=== PATIENT | female | born 1995 | race African-American/Black ===

== ENCOUNTER 2016-12-26 02:24 | Emergency (ER) | payer MEDICAID ==
[~2016-12-26] VITALS: Ht 157.5 cm; Wt 73.3 kg
[~2016-12-26 02:24] MED LIST: ONDA4TAB35 PO
[2016-12-26 02:29] VITALS: Ht 157.5 cm; Wt 73.3 kg
--- NOTE | 2016-12-26 05:58 | ERD ---
ER Documentation Chief Complaint Date/Time DATE: 12/26/16 TIME: 05:55 Chief Complaint Headache x 1 week HPI 21-year-old female complaining of left ear "plugged" 2 weeks. For the last week, she started feeling pain in the left ear with ringing noises, and headache. Denies fever or chills. Denies cough or nasal congestion. Denies trauma to the ear. ROS All systems reviewed and are negative except as per history of present illness. Medications Home Meds Active Scripts Ondansetron Hcl* (Zofran* ODT) 4 mg -ODT Tab.disper, 4 MG PO Q8 Y for NAUSEA AND /OR VOMITING, #30 TAB Prov:ARLENE CR HIV PREVENTION SPECIALIST 04/15/15 Allergies Allergies: Coded Allergies: Penicillins (Verified Allergy, Intermediate, RASH, 05/30/14) Uncoded Allergies: PCN (Allergy, Unknown, UNKNOWN, 05/30/14) PMhx/Soc Medical and Surgical Hx: pt denies Medical Hx, pt denies Surgical Hx History of Surgery: No Anesthesia Reaction: No Hx Neurological Disorder: No Hx Respiratory Disorders: No Hx Cardiac Disorders: No Hx Psychiatric Problems: No Hx Miscellaneous Medical Probl: No Hx Alcohol Use: No Hx Substance Use: No Hx Tobacco Use: No Smoking Status: Never smoker Physical Exam Vitals Vital Signs Date Time Temp Pulse Resp B/P Pulse Ox O2 Delivery O2 Flow Rate FiO2 12/26/16 02:29 79 16 117/75 98 Physical Exam General impression: Well-developed, well-nourished. Alert, oriented, in no acute distress Head: Normocephalic, atraumatic. Eyes: PERRL, EOM normal. Conjunctiva not injected. ENT: Right external canal clear, TM pearly glass. Cerumen in the left ear canal, unable to visualize TM. Nasal mucosa, oral mucosa and oropharynx are normal. Neck: Supple, nontender. No lymphadenopathy. No nuchal rigidity. Respiration: Normal respiratory effort. Lungs clear to auscultate bilaterally. No wheezes, rales or rhonchi. Cardiovascular: Regular rate and rhythm. No murmurs or extra heart sounds. Neuro: Mental status normal, speech normal. INSIDE [employer] grossly intact. Skin: Normal turgor. No rash or lesions. Psych: Normal mood and affect. Procedures/MDM Procedure note: Removal of impacted cerumen Large amount of cerumen was removed with both irrigation and curette by me. There is still significant amount of cerumen remaining, able to visualize TM through the cerumen. Patient reports improvement hearing after the procedure. I doubt otitis media or otitis externa. I doubt mastoiditis. Patient appears well, stable for discharge and outpatient management. Medical decision making shared with patient and family. Education provided to patient and family. Patient and family expressed understanding of the plan. Medications on discharge: None. Follow-up: Primary care provider in 2-3 days or return to ED if worse. Departure Diagnosis: Primary Impression: Impacted cerumen of left ear Condition: Good Patient Instructions: Cerumen Impaction, Home Care Referrals: [facility] YOU HAVE RECEIVED A MEDICAL SCREENING EXAM AND THE RESULTS INDICATE THAT YOU DO NOT HAVE A CONDITION THAT REQUIRES URGENT TREATMENT IN THE EMERGENCY DEPARTMENT. FURTHER EVALUATION AND TREATMENT OF YOUR CONDITION CAN WAIT UNTIL YOU ARE SEEN IN YOUR DOCTORS OFFICE WITHIN THE NEXT 1-2 DAYS. IT IS YOUR RESPONSIBILITY TO MAKE AN APPOINTMENT FOR FOLOW-UP CARE. IF YOU HAVE A PRIMARY DOCTOR --you should call your primary doctor and schedule an appointment IF YOU DO NOT HAVE A PRIMARY DOCTOR YOU CAN CALL OUR PHYSICIAN REFERRAL HOTLINE AT IF YOU CAN NOT AFFORD TO SEE A PHYSICIAN YOU CAN CHOSE FROM THE FOLLOWING [facility] [address] [facility]. [facility] [address] [facility] [address] [facility] [address] [facility]. [facility] [address] [facility]. [facility]. [address] Additional Instructions: Call your primary care doctor TOMORROW for an appointment during the next 2-3 days.See the doctor sooner or return here if your condition worsens before your appointment time. JER CHAMORRO NP Dec 26, 2016 05:58
[2016-12-26 06:17] VITALS: BP 124/82; PULSE 71; RESP 16
== END 2016-12-26 06:16 | disposition home or self-care (01) ==
LOC: FTE 02:24
DX: H61.22 Impacted cerumen, left ear (principal)
CPT/HCPCS: 69210; Z7502

== ENCOUNTER 2018-02-04 12:28 | Emergency (ER) | END 2018-02-04 17:04 | disposition home or self-care (01) ==

== ENCOUNTER 2018-02-18 00:32 | Emergency (ER) | END 2018-02-18 03:57 | disposition home or self-care (01) ==

== ENCOUNTER 2018-05-03 10:11 | Emergency (ER) | END 2018-05-03 11:30 | disposition home or self-care (01) ==

== ENCOUNTER 2018-11-06 10:16 | Emergency (ER) | payer SELFPAY ==
[~2018-11-06] VITALS: Ht 167.6 cm; Wt 80.8 kg
[~2018-11-06 10:16] MED LIST changes: +CIPR-193 PO; +DIPH1TAB PO; +MAG-19 PO; +ONDA4TAB14 PO; +RANI150T35 PO
[2018-11-06 10:19] VITALS: BP 130/72; RESP 20; Ht 167.6 cm; Wt 80.8 kg
[2018-11-06] MEDS ORDERED: ONDANSETRON (ODT) 4 MG TAB ODT STA (10:53)
[2018-11-06] MEDS ORDERED: IBUPROFEN 600 MG TAB PO STA (10:53)
[2018-11-06] MEDS ORDERED: ACETAMINOPHEN 500 MG TAB PO STA (10:53)
[2018-11-06] MEDS ORDERED: SOD CHLORIDE 0.9% 1,000 ML IV ONE (11:00)
[2018-11-06] MEDS ORDERED: ACET500C5 PO (12:16)
[2018-11-06] MEDS ORDERED: IBUP-1542 PO (12:16)
[2018-11-06] MEDS ORDERED: GUAI5SYR2 PO (12:18)
[2018-11-06] MEDS ORDERED: OSEL75CA23 PO (12:18)
[2018-11-06 12:27] VITALS: PULSE 89
--- NOTE | 2018-11-06 12:27 | ERD ---
ER Documentation Chief Complaint Chief Complaint Cough, colds and flulike symptoms x 2 days HPI Patient is a 23-year-old female with no past medical history presents to the ER for concerns of cough, fever, sore throat, vomiting times 2 days. Patient states Tuesday night she had 2-3 glasses of alcohol. She states she woke up Tuesday morning feeling "hung over". Since that time she has not been feeling well. She states yesterday night she developed body aches, chills, cough and sore throat. Patient states she last vomited yesterday. Patient continues to feel nauseous. Patient has no abdominal pain or chest pain. Patient states that she does feel short of breath. Patient has no diarrhea. Patient has no headache, neck pain or neck stiffness. Patient did not get the flu vaccine. Patient did not know she had a fever prior to arrival. Patient has not taken any medications for her symptoms. ROS All systems reviewed and are negative except as per history of present illness. Medications Home Meds Active Scripts Guaifenesin-Dextromethorphan* (Robitussin* DM) 100MG/10MG/5ML Syrup, 5 ML PO Q4H PRN for COUGH, #4 OZ Prov:ELVIRA TATE PA-C 11/06/18 Oseltamivir Phosphate* (Tamiflu*) 75 Mg Capsule, 75 MG PO BID for 5 Days, CAP Prov:ELVIRA TATE PA-C 11/06/18 Acetaminophen* (Tylophen*) 500 Mg Capsule, 1 CAP PO Q6H PRN for PAIN AND OR ELEVATED TEMP, #20 CAP Prov:ELVIRA TATE PA-C 11/06/18 Ibuprofen* (Motrin*) 600 Mg Tab, 600 MG PO Q6, #30 TAB Prov:ELVIRA TATE PA-C 11/06/18 Ondansetron (Ondansetron Odt) 4 Mg Tab.rapdis, 4 MG PO Q6H PRN for NAUSEA AND/OR VOMITING, #10 TAB Prov:SHRUTHI,LORENA 02/18/18 Ranitidine Hcl* (Zantac*) 150 Mg Tablet, 150 MG PO BID PRN for EPIGASTRIC PAIN for 15 Days, #30 TAB Prov:SHRUTHI,LORENA 02/18/18 Magaldrate/Simethicone* (Mylanta*) 355 Ml Susp, 30 ML PO QID PRN for GASTROINTESTINAL UPSET, #1 BOTTLE Prov:SHRUTHILORENA 02/18/18 Ranitidine Hcl* (Zantac*) 150 Mg Tablet, 150 MG PO BID PRN for EPIGASTRIC PAIN for 7 Days, #14 TAB Prov:VICTOR HUGO PALACIOS MD 02/04/18 Diphenoxylate HCl/Atropine (Lomotil 2.5-0.025 mg Tablet) 1 Each Tablet, 1 TAB PO QID PRN for DIARRHEA, #10 TAB Prov:VICTOR HUGO PALACIOS MD 02/04/18 Ciprofloxacin Hcl* (Ciprofloxacin Hcl*) 250 Mg Tablet, 250 MG PO BID for 3 Days, #6 TAB Prov:VICTOR HUGO PALACIOS MD 02/04/18 Ondansetron Hcl* (Zofran* ODT) 4 mg -ODT Tab.disper, 4 MG PO Q8 PRN for NAUSEA AND/OR VOMITING, #30 TAB Prov:ARLENE CR NP 04/15/15 Allergies Allergies: Coded Allergies: Penicillins (Verified Allergy, Intermediate, RASH, 02/04/18) PMhx/Soc History of Surgery: No Anesthesia Reaction: No Hx Neurological Disorder: No Hx Respiratory Disorders: No Hx Cardiac Disorders: No Hx Psychiatric Problems: No Hx Miscellaneous Medical Probl: No Hx Alcohol Use: No Hx Substance Use: No Hx Tobacco Use: No Smoking Status: Never smoker FmHx Family History: No diabetes Physical Exam Vitals Vital Signs Date Temp Pulse Resp B/P (MAP) Pulse Ox O2 O2 Flow FiO2 Time Delivery Rate 11/06/18 99.7 89 12:27 11/06/18 102.8 11:07 11/06/18 102.8 11:07 11/06/18 102.8 120 20 130/72 98 10:19 (91) Physical Exam GENERAL: Well-developed, well-nourished female. Appears in no acute distress. Speaking in full sentences. Nontoxic in appearance. HEAD: Normocephalic, atraumatic. No deformities or ecchymosis. EYE: Pupils equal, round, and reactive to light. EOMs intact. No conjunctival erythema. No eye discharge. ENT: External ear without any masses or tenderness. Auditory canals clear bilaterally. TM visualized bilaterally, non-erythematous, non-bulging. Nasal mucosa pink with no discharge. Oropharynx is pink without any tonsillar erythema or exudates. No uvula deviation. No kissing tonsils. NECK: Supple. No meningismus. Normal ROM of the neck. LUNG: Clear to auscultation bilaterally. No rhonchi, wheezing, rales or coarse breath sounds. HEART: Tachycardic. No murmurs, rubs or gallops. EXTREMITES: Equal pulses bilaterally. No peripheral clubbing, cyanosis or edema. No unilateral leg swelling. NEUROLOGIC: Alert and oriented to person, place and time. Moving all four extremities. 5/5 strength in all extremities. Normal speech. Steady gait. SKIN: Normal color. Warm and dry. No rashes or lesions. Results 24 hrs Laboratory Tests Test 11/06/18 11:04 11/06/18 11:06 Bedside Urine pH (LAB) 6.5 Bedside Urine Protein (LAB) 1+ Bedside Urine Glucose (UA) Negative Bedside Urine Ketones (LAB) 2+ Bedside Urine Blood 2+ Bedside Urine Nitrite (LAB) Negative Bedside Urine Leukocyte Esterase (L Negative POC Beta HCG, Qualitative NEGATIVE Current Medications Medications Dose Sig/Amor Start Time Status Last (Trade) Ordered Route PRN Stop Time Admin Dose Reason Admin 1,000 mg ONCE STAT 11/06/18 DC 11/06/18 Acetaminophen PO 10:53 11/06/18 11:07 (Tylenol 10:55 Tab) Ibuprofen 600 mg ONCE STAT 11/06/18 DC 11/06/18 (Motrin) PO 10:53 11/06/18 11:07 10:55 Ondansetron 4 mg ONCE STAT 11/06/18 DC 11/06/18 HCl (Zofran ODT 10:53 11/06/18 11:07 Odt) 10:55 Sodium 1,000 ml @ Q1H ONCE 11/06/18 DC 11/06/18 Chloride 1,000 mls/hr IV 11:00 11/06/18 11:07 11:59 Procedures/MDM ED COURSE: The patient was stable throughout ED course. I kept the patient and/or family informed of laboratory and diagnostic imaging results throughout the ED course. DIAGNOSTIC IMAGING: Read by radiologist. Patient: MIYA RANGEL : 1995 Age: 23 Sex: F MR #: [id number] DOS: 11/06/18 1053 Ordering MD: ELVIRA TATE PA-C Location: [facility] Room/Bed: PROCEDURE: XR Chest. CLINICAL INDICATION: Cough, fever TECHNIQUE: Single frontal view of the chest was obtained COMPARISON: None FINDINGS: The heart and mediastinum are within normal limits. The lungs are clear. There is no pleural effusion or pneumothorax. RPTAT: AA IMPRESSION: No acute disease. .Mikel Lobato MD, MD Date Time Electronically viewed and signed by .Mikel Lobato MD, MD on 11/06/2018 11:31 .S/ CC: ELVIRA TATE PA-C [id number] PROCEDURES: None. MEDICATIONS GIVEN: Ibuprofen, Tylenol, IV fluids, Zofran Patient tolerated medication well with no adverse reactions MEDICAL DECISION MAKING: This is a 23-year-old female with no past medical history presents ER for concerns of cough no fever, sore throat, denies body aches and vomiting times 2 days. Patient states she had vomiting after recently drinking alcohol. Last episode of vomiting was yesterday. Vital signs were reviewed. Vital signs were reviewed. Patient was febrile initial presentation with a temperature of 102.8. Patient was tachycardic at 120. IV line was established. Patient was given IV fluids. Urine was obtained and was negative for . UA showed 2+ blood, 2+ ketones however no nitrates or leukocyte esterase. Influenza swab was positive for influenza A. Given that patient presents with symptoms within 48 hours of onset, patient will be treated with a course of Tamiflu. Chest x-ray was unremarkable. Upon reexamination, patient reports significant improvement in symptoms. Patient stated her body aches were improved. Patient no longer had any shortness of breath. Patient was tolerating p.o. fluids without any difficulty. At this time, the patient's presentation is most consistent with influenza A. Low suspicion for UTI, pyelonephritis, pneumonia, meningitis, sinusitis, otitis externa, acute otitis media, strep pharyngitis, epiglottitis or peritonsillar abscess. Low suspicion for sepsis. Patient's vital signs were within normal limits prior to discharge. Patient was nontoxic, non-opening prior to discharge. PRESCRIPTIONS: Tylenol, ibuprofen, Tamiflu, Robitussin-DM cough syrup DISCHARGE: At this time, patient is stable for discharge and outpatient management. Supportive therapies such as OTC throat lozenges, salt water gurgles, popsicles and jello discussed. I have instructed the patient to follow-up with his/her primary care physician in 1-2 days. I have instructed the patient to promptly return to the ER for any new or worsening symptoms including increased pain, swelling, fever, nausea, vomiting, weakness or difficulty breathing. The patient and/or family expressed understanding of and agreement with this plan. All questions were answered. Home care instructions were provided. Disclaimer: Inadvertent spelling and grammatical errors are likely due to EHR/dictation software use and do not reflect on the overall quality of patient care. Also, please note that the electronic time recorded on this note does not necessarily reflect the actual time of the patient encounter. Departure Diagnosis: Primary Impression: Influenza Condition: Fair Patient Instructions: Influenza (Adult) Referrals: [facility] YOU HAVE RECEIVED A MEDICAL SCREENING EXAM AND THE RESULTS INDICATE THAT YOU DO NOT HAVE A CONDITION THAT REQUIRES URGENT TREATMENT IN THE EMERGENCY DEPARTMENT. FURTHER EVALUATION AND TREATMENT OF YOUR CONDITION CAN WAIT UNTIL YOU ARE SEEN IN YOUR DOCTORS OFFICE WITHIN THE NEXT 1-2 DAYS. IT IS YOUR RESPONSIBILITY TO MAKE AN APPOINTMENT FOR FOLOW-UP CARE. IF YOU HAVE A PRIMARY DOCTOR --you should call your primary doctor and schedule an appointment IF YOU DO NOT HAVE A PRIMARY DOCTOR YOU CAN CALL OUR PHYSICIAN REFERRAL HOTLINE AT IF YOU CAN NOT AFFORD TO SEE A PHYSICIAN YOU CAN CHOSE FROM THE FOLLOWING [facility] CLINICS [facility] [address] [place] [facility] [address] [facility]. [facility] [address] [facility] [address] [facility] [address] [facility] [address] [facility]. [facility] YOU HAVE RECEIVED A MEDICAL SCREENING EXAM AND THE RESULTS INDICATE THAT YOU DO NOT HAVE A CONDITION THAT REQUIRES URGENT TREATMENT IN THE EMERGENCY DEPARTMENT. FURTHER EVALUATION AND TREATMENT OF YOUR CONDITION CAN WAIT UNTIL YOU ARE SEEN IN YOUR DOCTORS OFFICE WITHIN THE NEXT 1-2 DAYS. IT IS YOUR RESPONSIBILITY TO MAKE AN APPOINTMENT FOR FOLOW-UP CARE. IF YOU HAVE A PRIMARY DOCTOR --you should call your primary doctor and schedule and appointment IF YOU DO NOT HAVE A PRIMARY DOCTOR YOU CAN CALL OUR PHYSICIAN REFERRAL HOTLINE AT . IF YOU CAN NOT AFFORD TO SEE A PHYSICIAN YOU CAN CHOSE FROM THE FOLLOWING [facility] INSTITUTIONS: [facility] [address] [place] [address] [facility] [address] [place], [place] [id number] [place] [address] [address] [place] [address] Additional Instructions: Call your primary care doctor TOMORROW for an appointment during the next 1-2 days.See the doctor sooner or return here if your condition worsens before your appointment time. ELVIRA TATE PA-C Nov 06, 2018 12:27
== END 2018-11-06 12:26 | disposition home or self-care (01) ==
LOC: FTE 10:16
DX: J10.1 Influenza due to other identified influenza virus with other respiratory manifestations (principal)
CPT/HCPCS: 71045; 81003; 81025; 87400; 96360; 99284; J7030

== ENCOUNTER 2019-01-07 19:39 | Emergency (ER) | payer SELFPAY ==
[~2019-01-07] VITALS: Ht 157.5 cm; Wt 82.9 kg
[~2019-01-07 19:39] MED LIST changes: +ACET500C5 PO; +GUAI5SYR2 PO; +IBUP-1542 PO; +OSEL75CA23 PO
[2019-01-07 19:46] VITALS: Ht 157.5 cm; Wt 82.9 kg
--- NOTE | 2019-01-07 22:13 | ERD ---
ER Documentation Chief Complaint Chief Complaint POSITIVE TEST AT HOME HPI 23-year-old female with no prior pregnancies presents because she says she took a test yesterday and was positive. She does not know her exact LMP but she says it was at the end of October. She is also states having some lower abdominal pain. She denies any vaginal bleeding or discharge. Denies any fevers, nausea, vomiting, diarrhea. Allergic to penicillins. Denies past medical history up-to-date on vaccines per ROS All systems reviewed and are negative except as per history of present illness. Medications Home Meds Active Scripts Guaifenesin-Dextromethorphan* (Robitussin* DM) 100MG/10MG/5ML Syrup, 5 ML PO Q4H PRN for COUGH, #4 OZ Prov:ELVIRA TATE PA-C 11/06/18 Oseltamivir Phosphate* (Tamiflu*) 75 Mg Capsule, 75 MG PO BID for 5 Days, CAP Prov:ELVIRA TATE PA-C 11/06/18 Acetaminophen* (Tylophen*) 500 Mg Capsule, 1 CAP PO Q6H PRN for PAIN AND OR ELEVATED TEMP, #20 CAP Prov:ELVIRA TATE PA-C 11/06/18 Ibuprofen* (Motrin*) 600 Mg Tab, 600 MG PO Q6, #30 TAB Prov:ELVIRA TATE PA-C 11/06/18 Ondansetron (Ondansetron Odt) 4 Mg Tab.rapdis, 4 MG PO Q6H PRN for NAUSEA AND/OR VOMITING, #10 TAB Prov:SHRUTHI,LORENA 02/18/18 Ranitidine Hcl* (Zantac*) 150 Mg Tablet, 150 MG PO BID PRN for EPIGASTRIC PAIN for 15 Days, #30 TAB Prov:SHRUTHI,LORENA 02/18/18 Magaldrate/Simethicone* (Mylanta*) 355 Ml Susp, 30 ML PO QID PRN for GASTROINTESTINAL UPSET, #1 BOTTLE Prov:SHRUTHI,LORENA 02/18/18 Ranitidine Hcl* (Zantac*) 150 Mg Tablet, 150 MG PO BID PRN for EPIGASTRIC PAIN for 7 Days, #14 TAB Prov:VICTOR HUGO PALACIOS MD 02/04/18 Diphenoxylate HCl/Atropine (Lomotil 2.5-0.025 mg Tablet) 1 Each Tablet, 1 TAB PO QID PRN for DIARRHEA, #10 TAB Prov:VICTOR HUGO PALACIOS MD 02/04/18 Ciprofloxacin Hcl* (Ciprofloxacin Hcl*) 250 Mg Tablet, 250 MG PO BID for 3 Days, #6 TAB Prov:VICTOR HUGO PALACIOS MD 02/04/18 Ondansetron Hcl* (Zofran* ODT) 4 mg -ODT Tab.disper, 4 MG PO Q8 PRN for NAUSEA AND/OR VOMITING, #30 TAB Prov:ARLENE CR NP 04/15/15 Allergies Allergies: Coded Allergies: Penicillins (Verified Allergy, Intermediate, RASH, 02/04/18) PMhx/Soc Medical and Surgical Hx: pt denies Medical Hx, pt denies Surgical Hx History of Surgery: No Anesthesia Reaction: No Hx Neurological Disorder: No Hx Respiratory Disorders: No Hx Cardiac Disorders: No Hx Psychiatric Problems: No Hx Miscellaneous Medical Probl: No Hx Alcohol Use: No Hx Substance Use: Yes (OCCASIONAL MARIJUANA) Hx Tobacco Use: No Smoking Status: Current every day smoker FmHx Family History: No diabetes, No coronary disease, No other Physical Exam Vitals Vital Signs Date Temp Pulse Resp B/P (MAP) Pulse Ox O2 O2 Flow FiO2 Time Delivery Rate 01/08/19 98.5 80 19 121/58 98 Room Air 01:43 (79) 01/07/19 98.2 96 18 128/62 100 19:46 (84) Physical Exam Const: No acute distress Head: Atraumatic Eyes: Normal Conjunctiva ENT: Normal External Ears, Nose and Mouth. Neck: Full range of motion. No meningismus. Resp: Clear to auscultation bilaterally Cardio: Regular rate and rhythm, no murmurs Abd: Soft, non tender, non distended. Normal bowel sounds Skin: No petechiae or rashes Back: No midline or flank tenderness Ext: No cyanosis, or edema Neur: Awake and alert Psych: Normal Mood and Affect Result Diagram: 01/07/19 9297 Results 24 hrs Laboratory Tests Test 01/07/19 21:10 01/07/19 22:18 Urine Color YELLOW Urine Clarity SLIGHTLY CLOUDY Urine pH 6.0 Urine Specific [place] 1.026 Urine Ketones 2+ mg/dL Urine Nitrite NEGATIVE mg/dL Urine Bilirubin NEGATIVE mg/dL Urine Urobilinogen 2+ mg/dL Urine Leukocyte Esterase TRACE Adarsh/ul Urine Microscopic RBC 1 /HPF Urine Microscopic WBC 5 /HPF Urine Squamous Epithelial Cells FEW /HPF Urine Bacteria FEW /HPF Urine Mucus FEW /HPF Urine Hemoglobin NEGATIVE mg/dL Urine Glucose NEGATIVE mg/dL Urine Total Protein NEGATIVE mg/dl White Blood Count 7.5 10^3/ul Red Blood Count 3.69 10^6/ul Hemoglobin 11.2 g/dl Hematocrit 34.0 % Mean Corpuscular Volume 92.1 fl Mean Corpuscular Hemoglobin 30.4 pg Mean Corpuscular Hemoglobin Concent 32.9 g/dl Red Cell Distribution Width 13.0 % Platelet Count 371 10^3/UL Mean Platelet Volume 9.6 fl Immature Granulocytes % 0.300 % Neutrophils % 61.9 % Lymphocytes % 29.9 % Monocytes % 7.1 % Eosinophils % 0.4 % Basophils % 0.4 % Nucleated Red Blood Cells % 0.0 /100WBC Immature Granulocytes # 0.020 10^3/ul Neutrophils # 4.7 10^3/ul Lymphocytes # 2.2 10^3/ul Monocytes # 0.5 10^3/ul Eosinophils # 0.0 10^3/ul Basophils # 0.0 10^3/ul Nucleated Red Blood Cells # 0.0 10^3/ul Beta HCG, Quantitative 6203.1 mIU/ml Procedures/MDM DIAGNOSTIC IMAGING REPORT Patient: MIYA RANGEL : 1995 Age: 23 Sex: F MR #: [id number] DOS: 01/07/19 2202 Ordering MD: THO CEBALLOS [facility] Room[facility]Bed: PROCEDURE: US OB with transvaginal. CLINICAL INDICATION: Vaginal bleeding, pelvic pain. Clinical estimated gestational age is 5 weeks 3 days with estimated date of delivery 09/06/2019 TECHNIQUE: Transabdominal and transvaginal views of the pelvis are available for review. COMPARISON: No prior studies are available for comparison. FINDINGS: [place]-rump length: 0.27 cm heart rate: No embryonic heart activity seen at this time which could be due to early gestational age. Ultrasound estimated gestational age: 5 weeks 6 days Estimated date of delivery: 09/03/2019 No ovarian or adnexal mass lesion is seen. There is a 1.7 cm right ovarian corpus luteum. Color flow and spectral analysis demonstrates arterial and venous flow in both ovaries. Small amount of free fluid in cul-de-sac. IMPRESSION: Single intrauterine with an estimated gestational age of 5 weeks 6 days based on ultrasound measurement. No embryonic heart activity seen at this time which could be due to early gestational age. Small amount of free fluid in cul-de-sac. Follow-up is recommended. RPTAT: HJES .Teodoro Flores MD, MD Date Time Electronically viewed and signed by .Teodoro Flores MD, MD on 01/08/2019 00:10 .S/ CC: THO CEBALLOS [id number] ER Course: CBC, UA, beta quant HCG, type and RH, vaginal US/abdominal US ordered. All WNL. 23-year-old female with no prior pregnancies presents because she says she took a test yesterday and was positive. She does not know her exact LMP but she says it was at the end of October. She is also states having some lower abdominal pain. She denies any vaginal bleeding or discharge. Denies any fevers, nausea, vomiting, diarrhea. Allergic to penicillins. Denies past medical history up-to-date on vaccines. I have low suspicion for ectopic based on results of US, hemodynamic stability, physical exam and patient history. I have low suspicion for septic , appendicitis, cholecystitis, bowel obst ruction, ovarian torsion, symptomatic anema, PID, surgical abdomen, or other life threatening conditions based on patient history, physical exam, and lab/imaging results. Patient discharged with strict ER precautions. Patient advised to return in 48 hours for follow up or sooner if symptoms continue or worsen. All questions answered at discharge. Departure Diagnosis: Primary Impression: Pelvic pain complicating Trimester: first trimester Qualified Codes: O26.891 - Other specified related conditions, first trimester; R10.2 - Pelvic and perineal pain Condition: Stable THO CEBALLOS Jan 07, 2019 22:13
[2019-01-08 01:43] VITALS: BP 121/58; PULSE 80; RESP 19
== END 2019-01-08 01:44 | disposition home or self-care (01) ==
LOC: FTE 19:39
DX: O26.891 Other specified pregnancy related conditions, first trimester (principal); R10.2 Pelvic and perineal pain; O99.331 Smoking (tobacco) complicating pregnancy, first trimester; F17.210 Nicotine dependence, cigarettes, uncomplicated; Z3A.01 Less than 8 weeks gestation of pregnancy
CPT/HCPCS: 36415; 76801; 76817; 81001; 84702; 85025; 86900; 86901